=== PATIENT | female | born 1950 | race Caucasian/White ===

== ENCOUNTER 2021-01-04 03:15 | Emergency (ER) | payer MEDICARE, OTHER ==
[2021-01-04 03:32] LABS: BASOPHIL 0.5 % (0-2); EOSINOPHIL 4.9 % (0-7); HCT 43.1 % (37.0-47.0); LYMPHOCYTE 25.4 % (15-48); MCH 29.4 pg (25.0-31.0); MCHC 32.5 g/dL (32.0-36.0); MCV 90.4 fL (78.0-100.0); MONOCYTE 7.7 % (0-12); MPV 9.9 fL (6.0-9.5); NRBC 0; PLT 271 K/uL (150-400); RBC 4.77 M/uL (4.20-5.40); RDW 13.7 % (11.5-14.0); WBC 10.6 K/uL (4.0-10.5)
[2021-01-04 03:41] LABS: INR 1.04 (0.9-1.2); PROTHROMBIN TIME 12.9 SECONDS (11.4-13.6)
[2021-01-04 03:42] LABS: PTT 27.9 SECONDS (22.2-34.7)
[2021-01-04 03:43] LABS: D-DIMER 0.84 ug/mLFEU (0.00-0.41)
[2021-01-04 03:48] LABS: ALBUMIN 3.4 g/dL (3.4-5.0); BILIRUBIN - TOTAL 0.7 mg/dL (0.2-1.0); BUN/CREAT RATIO (CALC) 20.7 RATIO; CREATININE 0.87 mg/dL (0.51-0.95); GLOBULIN (CALCULATION) 3.8 g/dL; POTASSIUM 3.4 mmol/L (3.5-5.1); TOTAL PROTEIN 7.2 g/dL (6.4-8.2)
[2021-01-04 03:56] LABS: PRO-BNP 181 pg/mL (<125)
[2021-01-04 05:51] LABS: CORONAVIRUS 2019 SARS-COV-2 NEGATIVE (NEGATIVE); INFLUENZA A NAA NEGATIVE (NEGATIVE)
[2021-01-04] MEDS ORDERED: CYCLOBENZAPRINE10 MG PO (07:31)
[2021-01-04] MEDS ORDERED: MEDROL 4MG DOSEP4 MG PO (07:31)
== END 2021-01-04 07:45 | disposition home or self-care (01) ==
LOC: FER 03:15
PROVIDERS: Emergency Medicine Emergency Medical Services
DX: M94.0 Chondrocostal junction syndrome [Tietze] (principal); Z20.822 Contact with and (suspected) exposure to COVID-19; I10 Essential (primary) hypertension; Z88.8 Allergy status to other drugs, medicaments and biological substances; Z88.5 Allergy status to narcotic agent; Z88.1 Allergy status to other antibiotic agents; Z91.040 Latex allergy status; Z79.899 Other long term (current) drug therapy
CPT/HCPCS: 36415; 71045; 71250; 80053; 83690; 83880; 84484; 85025; 85379; 85610; 85730; 93005; J1885; J2930; U0002

== ENCOUNTER 2021-01-21 08:34 | Emergency (ER) | payer MEDICARE, OTHER ==
[~2021-01-21 08:34] MED LIST: CYCLOBENZAPRINE10 MG PO; MEDROL 4MG DOSEP4 MG PO
[2021-01-21] MEDS ORDERED: MEDROL 4MG DOSEP4 MG PO (10:15)
== END 2021-01-21 10:31 | disposition home or self-care (01) ==
LOC: FER 08:34
DX: M47.812 Spondylosis without myelopathy or radiculopathy, cervical region (principal); J44.9 Chronic obstructive pulmonary disease, unspecified; I10 Essential (primary) hypertension; Z87.19 Personal history of other diseases of the digestive system; Z91.040 Latex allergy status
CPT/HCPCS: 72050; J1885

== ENCOUNTER 2021-06-04 10:21 | Emergency (ER) | payer MEDICARE, OTHER ==
[2021-06-04 12:11] LABS: BILIRUBIN NEGATIVE (NEGATIVE); BLOOD 3+ Ery/uL (NEGATIVE); COLOR YELLOW (YELLOW); GLUCOSE (U) NORMAL (NORMAL); LEUKOCYTES 2+ Leu/uL (NEGATIVE); NITRITE POSITIVE (NEGATIVE); PROTEIN 2+ mg/dL (NEGATIVE); SPECIFIC GRAVITY 1.025 (1.001-1.030); UROBILINOGEN 0.2 mg/dL (0.2-1.0)
[2021-06-04 12:19] LABS: CLARITY HAZY (CLEAR)
[2021-06-04 12:20] LABS: BACTERIA 1+
[2021-06-04] MEDS ORDERED: NITROFURANTOIN100 M1 PO (13:04)
== END 2021-06-04 13:31 | disposition home or self-care (01) ==
LOC: FER 10:21
PROVIDERS: Emergency Medicine
DX: N39.0 Urinary tract infection, site not specified (principal); R32 Unspecified urinary incontinence; I10 Essential (primary) hypertension; E66.9 Obesity, unspecified; Z88.1 Allergy status to other antibiotic agents; Z88.8 Allergy status to other drugs, medicaments and biological substances; Z91.040 Latex allergy status; Z88.5 Allergy status to narcotic agent
CPT/HCPCS: 81001; 87076; 87088; 87186; 99283

== ENCOUNTER 2021-06-20 19:11 | Emergency (ER) | payer MEDICARE, OTHER ==
[~2021-06-20 19:11] MED LIST changes: +NITROFURANTOIN100 M1 PO
[2021-06-20 21:16] LABS: BASOPHIL 0.6 % (0-2); EOSINOPHIL 2.6 % (0-7); HCT 40.9 % (37.0-47.0); MCH 28.3 pg (25.0-31.0); MCHC 31.8 g/dL (32.0-36.0); MCV 89.1 fL (78.0-100.0); MONOCYTE 7.1 % (0-12); MPV 9.6 fL (6.0-9.5); NEUTROPHIL 73.2 % (41-80); NRBC 0; PLT 401 K/uL (150-400); RBC 4.59 M/uL (4.20-5.40); RDW 13.8 % (11.5-14.0); WBC 15.8 K/uL (4.0-10.5)
[2021-06-20 21:34] LABS: BUN/CREAT RATIO (CALC) 19.8 RATIO; CREATININE 0.91 mg/dL (0.51-0.95); POTASSIUM 3.2 mmol/L (3.5-5.1)
[2021-06-20 21:55] LABS: BILIRUBIN NEGATIVE (NEGATIVE); BLOOD 2+ Ery/uL (NEGATIVE); CLARITY CLEAR (CLEAR); COLOR YELLOW (YELLOW); GLUCOSE (U) NORMAL (NORMAL); LEUKOCYTES 3+ Leu/uL (NEGATIVE); NITRITE NEGATIVE (NEGATIVE); PROTEIN 2+ mg/dL (NEGATIVE); UROBILINOGEN 0.2 mg/dL (0.2-1.0); pH 6.5 (5.0-9.0)
[2021-06-20 22:00] LABS: BACTERIA 3+; URINARY WBC TNTC
[2021-06-20 22:01] LABS: AMORPHOUS URATES CRYSTALS TRACE; MUCOUS TRACE
[2021-06-20 23:52] LABS: CORONAVIRUS 2019 SARS-COV-2 NEGATIVE (NEGATIVE); INFLUENZA A NAA NEGATIVE (NEGATIVE)
[2021-06-21] MEDS ORDERED: BACTRIM DS TAB1 EACH PO (00:01)
== END 2021-06-21 00:30 | disposition home or self-care (01) ==
LOC: FER 19:11
PROVIDERS: Nurse Practitioner Family
DX: N39.0 Urinary tract infection, site not specified (principal); M79.10 Myalgia, unspecified site; I10 Essential (primary) hypertension; Z20.822 Contact with and (suspected) exposure to COVID-19
CPT/HCPCS: 36415; 71045; 80048; 81001; 85025; 87088; J1885; J2543; J7030; U0002